=== PATIENT | female | born 1975 | race Caucasian/White ===

== ENCOUNTER → 2017-03-11 | Outpatient (CLI) | payer MEDICAID ==
[~2017-03-11] MED LIST: LORT5TAB PO; Z.0.NO CURRENT MEDS
--- NOTE | 2017-03-11 18:51 | EKG ---
Date Performed: 03/11/2017 Time Performed: 10:31:12 PTAGE: 42 years EKG: Sinus rhythm . rSr'(V1) - probable normal variant Normal ECG NO PREVIOUS TRACING DOCTOR: Uday Vazquez Interpretating Date/Time 03/11/2017 18:51:07
== END ==
LOC: HCAV 10:11
PROVIDERS: ATTEND Psychiatry & Neurology Child & Adolescent Psychiatry
DX: F90.1 Attention-deficit hyperactivity disorder, predominantly hyperactive type (principal)
CPT/HCPCS: 93005

== ENCOUNTER 2017-04-10 13:42 | Emergency (ER) | payer MEDICAID ==
[~2017-04-10] VITALS: Ht 165.1 cm; Wt 75.0 kg
[2017-04-10 13:48] VITALS: BP 128/87; PULSE 97; RESP 16; TEMP 98.2; O2SAT 98
[2017-04-10] MEDS ORDERED: LISD50 PO (14:50)
--- NOTE | 2017-04-10 15:17 | PD ---
HPI Chief Complaint: Injury Time Seen by Provider: 15:01 Travel History International Travel<30 days: No Contact w/Intl Traveler<30days: No Traveled to known affect area: No History of Present Illness HPI 42-year-old female presents to the emergency room for evaluation of right anterior shoulder pain for the past 2 days. Patient states 2 days ago, she was mopping her house. She was applying significant pressure and mopped about 3000 sq ft. She developed immediate, sharp, stabbing pain to the right anterior shoulder while mopping and had to stop. She thought was just muscular and waited for it to go away but it persisted. Pain is worsened with any range of motion. No pain with pressure. Denies any history of the same. She states today she was noticed there was bruising and a bulge to the lower arm which concerned her. She took 4 Tylenol PM last night with mild relief in symptoms. She denies paresthesias. She denies any chronic medical conditions or daily medications. No recent antibiotic use. PFSH Past Medical History ADD: Yes Cardiovascular Problems: No Gastrointestinal Disorders: No Genitourinary: No Headaches: Yes Musculoskeletal: No Neurologic: Yes Reproductive: No Respiratory: No Tetanus Vaccination: < 5 Years Influenza Vaccination: No ?: Not LMP: 10 DAYS Tubal Ligation: Yes Past Surgical History Appendectomy: Yes Section: Yes (x2) Oral Surgery: Yes (upper mouth r/t injury) Other Surgery: Yes ( X 2) Social History Alcohol Use: Yes (ocass mix drinks) Tobacco Use: No Substance Use: No Allergies-Medications (Allergen,Severity, Reaction): Coded Allergies: acetaminophen (Unverified Allergy, Severe, DIFF BREATHING AND NAUSEA, 04/10) meperidine (Unverified Allergy, Severe, DIFF BREATHING AND NAUSEA, 04/10/17 ) oxycodone (Unverified Allergy, Severe, DIFF BREATHING AND NAUSEA, 04/10/17) propoxyphene (Unverified Allergy, Severe, DIFF BREATHING AND NAUSEA, ) Reported Meds & Prescriptions Reported Meds & Active Scripts Active Reported Vyvanse (Lisdexamfetamine Dimesylate) 50 Mg Cap 50 Mg PO DAILY Review of Systems Except as stated in HPI: all other systems reviewed are Neg Physical Exam Narrative GENERAL: Well-nourished, well-developed female in no acute distress. Afebrile. Ambulatory. SKIN: Focused skin assessment warm/dry. There is a 4 cm area of ecchymosis to the right medial upper arm. HEAD: Normocephalic. EYES: No scleral icterus. No injection or drainage. NECK: Supple, trachea midline. No JVD or lymphadenopathy. CARDIOVASCULAR: Regular rate and rhythm without murmurs, gallops, or rubs. RESPIRATORY: Breath sounds equal bilaterally. No accessory muscle use. GASTROINTESTINAL: Abdomen soft, non-tender, nondistended. MUSCULOSKELETAL: No cyanosis. No obvious edema. 2+ radial pulse. Radial, ulnar, median nerves intact. No significant tenderness to palpation. Pain occurs with active but not passive range of motion. Data Data Last Documented VS Vital Signs Date Time Temp Pulse Resp B/P (MAP) Pulse Ox O2 Delivery O2 Flow Rate FiO2 04/10/17 14:34 16 98 Room Air 04/10/17 13:48 98.2 97 128/87 (101) Orders Orders Shoulder, Complete (>2vws) (04/10/17 ) Splint Or Brace Apply/Monitor (04/10/17 15:49) Ed Discharge Order (04/10/17 15:52) MDM Medical Decision Making Medical Screen Exam Complete: Yes Emergency Medical Condition: Yes Medical Record Reviewed: Yes Differential Diagnosis Rotator cuff injury, calcific tendinitis, biceps tendon rupture Narrative Course 42-year-old female presents to the emergency room for evaluation of right anterior shoulder pain with range of motion for the past 2 days. Pain started suddenly while she was mopping. Denies any paresthesias. Physical exam is reassuring. Right upper extremity is neurovascularly intact with 2+ radial pulse. Radial, ulnar, median nerves intact. No obvious edema. There is mild ecchymosis of the right medial upper arm. No bulging. When patient tries to flex her biceps muscle, it is decreased compared to left. X-ray is negative. I am concerned for partial biceps tendon rupture. Patient was placed in sling and discharged with orthopedic instructions. She was encouraged to follow-up with an orthopedic physician within 1 week or return for worsening symptoms. She understands and agrees to plan. Diagnosis Primary Impression: Right shoulder strain Qualified Codes: S46.911A - Strain of unspecified muscle, fascia and tendon at shoulder and upper arm level, right arm, initial encounter Referrals: Orthopaedic Surgeon Primary Care Physician Additional Instructions: Rest and drink plenty of fluids. Sling as needed. Maintain range of motion of the shoulder by doing passive range of motion exercises to prevent frozen shoulder. Take ibuprofen with food as directed, as needed for pain. Apply ice to the affected area for 20 minutes at a time, as needed for pain and swelling. Follow-up with a primary care physician or orthopedic physician. Return to the emergency room for worsening symptoms. Med/Other Pt SpecificInfo: Prescription(s) given Disposition: 01 DISCHARGE HOME Condition: Stable Carmen Nguyen Apr 10, 2017 15:17
--- NOTE | 2017-04-10 15:40 | RADRPT ---
EXAM DATE/TIME: 04/10/2017 15:30 [facility] COMPARISON: No previous studies available for comparison. INDICATIONS : Right shoulder pain for 2 days due to straining injury MEDICAL HISTORY : None. SURGICAL HISTORY : None. ENCOUNTER: Initial ACUITY: 2 days PAIN SCORE: 8/10 LOCATION: Right lateral side of shoulder FINDINGS: Multiple view examination of the right shoulder demonstrates no evidence of fracture or dislocation. The glenohumeral and acromioclavicular joints are maintained. There is normal range of motion betwe en internal and external rotation. Bony mineralization is normal. CONCLUSION: Negative for fracture or dislocation. Follow up in 7-10 days is suggested if symptoms persist. Hussein Little MD FACR on April 10, 2017 at 15:39 Board Certified Radiologist. This report was verified electronically.
== END 2017-04-10 16:09 | disposition home or self-care (01) ==
LOC: PHED 13:42 → PHEFT 16:09
DX: S46.911A Strain of unspecified muscle, fascia and tendon at shoulder and upper arm level, right arm, initial encounter (principal); Y93.E5 Activity, floor mopping and cleaning; Y92.009 Unspecified place in unspecified non-institutional (private) residence as the place of occurrence of the external cause; Z88.8 Allergy status to other drugs, medicaments and biological substances; Z79.899 Other long term (current) drug therapy
CPT/HCPCS: 73030; 99283